=== PATIENT | female | born 1965 | race American Indian/Alaskan Native ===

== ENCOUNTER 2016-07-28 08:03 | Emergency (ER) | payer OTHER ==
[2016-07-28 08:29] VITALS: PULSE 86; RESP 18; TEMP 98.5; O2SAT 99
[2016-07-28] MEDS ORDERED: Bacitracin 500 Units/gm Oint Foilpak UD ONE (08:29)
--- NOTE | 2016-07-28 08:44 | C.PDOC ---
History Of Present Illness Patient is a 50 y/o female that presents to the emergency department for evaluation of pain to right third finger. Patient states that she banged it while moving furniture 1 week ago. Pt also reports "a lot" of discharge from the finger since this morning prompting visit. Pt notes that she had a manicure done yesterday. Otherwise, denies any fever, weakness/numbness, change in sensation, or any other associated symptoms at this time. Time Seen by Provider: 07/28/16 08:19 Chief Complaint (Nursing): Finger,Hand,&Wrist History Per: Patient History/Exam Limitations: no limitations Onset/Duration Of Symptoms: Days (1 week) Current Symptoms Are (Timing): Still Present Quality: "Pain" Exacerbating Factor(s): Nothing Recent travel outside of the [place]: No Additional History Per: Patient Past Medical History Reviewed: Historical Data, Nursing Documentation, Vital Signs Vital Signs: Last Vital Signs Temp 98.5 F 07/28/16 08:07 Pulse 86 07/28/16 08:07 Resp 18 07/28/16 08:07 BP 138/86 07/28/16 09:01 Pulse Ox 99 07/28/16 11:08 - Medical History PMH: HTN (no meds) Family History: States: No Known Family Hx - Social History Hx Alcohol Use: Yes Hx Substance Use: No - Immunization History Hx Tetanus Toxoid Vaccination: No Hx Influenza Vaccination: No Hx Pneumococcal Vaccination: No Review Of Systems Except As Marked, All Systems Reviewed And Found Negative. Constitutional: Negative for: Fever, Chills Musculoskeletal: Positive for: Hand Pain (right third finger pain and swelling) Neurological: Negative for: Weakness, Numbness Physical Exam - Physical Exam Appears: Non-toxic, No Acute Distress Skin: Warm, Dry, Other (erythema to lateral aspect of right third finger) Head: Atraumatic, Normacephalic Eye(s): bilateral: Normal Inspection, EOMI Nose: Normal Oral Mucosa: Moist Chest: Symmetrical Respiratory: No Accessory Muscle Use Extremity: Normal ROM, Tenderness (lateral aspect of right third finger), Capillary Refill (< 2 sec.), No Deformity, Swelling (swelling, erythema and tenderness to the proximal aspect of the finger) Pulses: Left Radial: Normal, Right Radial: Normal Neurological/Psych: Oriented x3, Normal Speech, Normal Cognition, Normal Motor, Normal Sensation ED Course And Treatment O2 Sat by Pulse Oximetry: 99 (on RA) Pulse Ox Interpretation: Normal - Other Rad Right hand x-ray X-Ray: Viewed By Me, Read By Radiologist Interpretation: FINDINGS: BONES: No evidence of acute displaced fracture nor dislocation. The osseous structures appear grossly intact. Note is made of a small rounded lucency which appears to be located within the distal capitate on the PA view. 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 There appears to be some mild soft tissue swelling over the distal phalanx 3rd digit. Clinical correlation with physical exam. JOINTS: Normal. No osteoarthritic changes. SOFT TISSUES: Normal. OTHER FINDINGS: None. IMPRESSION: No evidence of acute displaced fracture nor dislocation. There does appear to be mild soft tissue swelling at the level of the distal phalanx 3rd finger Progress Note: Right hand x-ray ordered and reviewed. Patient is being disharged home, with instructions to follow up with PMD in 2 days for wound check. - Incision & Drainage Of Abscess Prep Used: Sterile Water, Betadine Procedure: Incised W/Scalpel Blade#: (11), Drained Pus, Irrigated Cavity W/ Saline Disposition - Disposition Referrals: Pierce Tomas MD [Staff Provider] - Disposition: HOME/ ROUTINE Disposition Time: 08:39 Condition: STABLE Additional Instructions: Warm water soaks of the affected finger 3-4 times per day until symptoms resolve are helpful. Watch for signs of increased redness, swelling and fever, return right away if these symptoms should arise. Wound check in 2 days. Prescriptions: Mupirocin 2% Ointment [Bactroban Ointment] 1 appl TP TID #1 tube Sulfamethoxazole/Trimethoprim [Bactrim DS 800 mg-160 mg] 1 tab PO BID #14 tab Instructions: Paronychia (ED) - Clinical Impression Clinical Impression: Paronychia - PA / CHILD WELFARE SPECIALIST / Resident Statement MD/DO has reviewed & agrees with the documentation as recorded. - Scribe Statement The provider has reviewed the documentation as recorded by the Jessica Orosco All medical record entries made by the Scribe were at my direction and personally dictated by me. I have reviewed the chart and agree that the record accurately reflects my personal performance of the history, physical exam, medical decision making, and the department course for this patient. I have also personally directed, reviewed, and agree with the discharge instructions and disposition.
[2016-07-28 09:02] VITALS: BP 138/86
--- NOTE | 2016-07-28 10:58 | RAD ---
PROCEDURE: Right Hand Radiographs. HISTORY: r/o fracture COMPARISON: None. FINDINGS: BONES: No evidence of acute displaced fracture nor dislocation. The osseous structures appear grossly intact. Note is made of a small rounded lucency which appears to be located within the distal capitate on the PA view. 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 There appears to be some mild soft tissue swelling over the distal phalanx 3rd digit. Clinical correlation with physical exam. JOINTS: Normal. No osteoarthritic changes. SOFT TISSUES: Normal. OTHER FINDINGS: None. IMPRESSION: No evidence of acute displaced fracture nor dislocation. There does appear to be mild soft tissue swelling at the level of the distal phalanx 3rd finger
== END 2016-07-28 09:01 | disposition home or self-care (01) ==
LOC: C.ER 08:03
DX: L03.011 Cellulitis of right finger (principal); I10 Essential (primary) hypertension